=== PATIENT | male | born 1980 | race Caucasian/White ===

== ENCOUNTER 2019-09-25 16:27 | Outpatient (CLI) | payer OTHER, SELFPAY ==
--- NOTE | ~2019-09-25 | XR_ITS ---
EXAMINATION: XR abdomen/kub 1V DATE: 09/25/2019 16:54 INDICATION: Gross hematuria. TECHNIQUE: A supine view of the abdomen on 2 radiographs was obtained. COMPARISON: CT abdomen and pelvis 09/25/2019 FINDINGS: There are no dilated loops of bowel. There is no urolithiasis. There is a phlebolith in lef t pelvis. IMPRESSION: 1. No urolithiasis. Reviewed, dictated and finalized at location A. 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 No urolithiasis.
--- NOTE | ~2019-09-25 | CT_ITS ---
EXAMINATION: CT abdomen pelvis wo/w con DATE: 09/25/2019 17:27 INDICATION: Gross hematuria TECHNIQUE: Computed tomography (CT) of the abdomen and pelvis was performed without intravenous contr ast. CT of the abdomen and pelvis was then performed with a total of 130 mL Omnipaque 350 intravenous contrast using a double-bolus technique for simultaneous opacification of the renal parenchyma and r enal collecting system. The dose-length product (DLP) was 2326.03 mGy-cm. Automated exposure control and iterative reconstruction technique were employed. COMPARISON: None FINDINGS: Minimal dependent atelectasis is present in the lung bases. The heart size is normal. There is scarring in the lingula. Calcified right hilar lung nodules are consistent with old granulomatous disease. The liver, spleen, pancreas, and adrenal glands are normal. The gallbladder is decompressed but normal in appearance. No stones are identified in the kidneys, ureters, or bladder. There is no hydronephrosis or hydroureter. No suspicious renal or urothelial lesion is identified. No pathologica lly enlarged abdominal or pelvic lymph nodes are identified. There is no free intraperitoneal gas or evidence of bowel obstruction. The appendix is normal. IMPRESSION: 1. No CT correlate for the patient's symptoms. Reviewed, dictated and finalized at location A. 3D ARTIST
[2019-09-25 22:40] LABS: Blood Urea Nitrogen 14 mg/dL (8-26); Estimated Glomerular Filt Rate > 60
== END 2019-09-25 16:28 | disposition home or self-care (01) ==
LOC: ANHIMG 16:38
PROVIDERS: Visit Provider Urology
DX: R31.0 Gross hematuria (principal)
CPT/HCPCS: 74018; 74178; Q9967

== ENCOUNTER 2020-01-26 00:20 | Outpatient (CLI) | payer OTHER, SELFPAY ==
[2020-01-26 20:58] LABS: SARS-CoV-2 RNA PCR Negative
== END 2020-01-26 00:21 | disposition home or self-care (01) ==
LOC: ANHCOVIDDT 00:20
PROVIDERS: Visit Provider Otolaryngology
DX: Z01.812 Encounter for preprocedural laboratory examination (principal); Z11.59 Encounter for screening for other viral diseases
CPT/HCPCS: 87635; C9803; U0003

== ENCOUNTER 2020-01-29 00:54 | Day surgery (SDC) | payer OTHER, SELFPAY ==
[2020-01-16 10:10] VITALS: BMI 30.4
[2020-01-29] VITALS (8 sets, daily range): BP systolic 123–135; BP diastolic 78–95; PULSE 62–107; RESP 12–18; TEMP 36.1–36.7; O2SAT 97–100
--- NOTE | 2020-01-29 12:18 | WPDHPUPDATE1 ---
History and Physical Update Update Date/Time: 01/29/20 12:18 History and Physical has been reviewed, including an updated exam of the patient. There are NO changes in the patient's condition. Risks, benefits, and alternatives have been discussed and questions answered. Patient agrees to proceed with procedure.
--- NOTE | 2020-01-29 12:41 | PM.IMHP ---
H&P: HPI History of Present Illness Chief complaint: Deviated Septum, Turbinate Hypertrophy Narrative: Regan Soto is a 39 year old male with dev septum Review of Systems Review of Systems: All systems reviewed & are unremarkable except as noted in HPI and below PMFSH Social History Social History Gender identity (if verbalized by the patient): Male Meds Home Medications and Allergies Home Medications Medication Instructions Recorded Confirmed Type Lacto.acidophilus-Bif.animalis 1 cap PO DAILY 01/16/20 01/16/20 History [Probiotic] cetirizine [Zyrtec] 10 mg PO DAILY 01/16/20 01/16/20 History Allergies Allergy/AdvReac Type Severity Reaction Status Date / Time amoxicillin Allergy Mild Rash Verified 01/16/20 10:07 Exam Narrative: Exam Narrative: deviated septum Assessment and Plan Assessment and plan (1) Deviated septum: Code(s): J34.2 - Deviated nasal septum Status: Acute Assessment and Plan: septoturb. refer to outpt h&p for full detials.
--- NOTE | 2020-01-29 12:56 | P.PNAN_ITS ---
Anes - Initial Pre Proc Eval Procedure: Operation Date: 01/29/20 15:00 Proposed Procedures p Septoplasty - Vishal Lopez MD s Bilateral Turbinate Reduction - Vishal Lopez MD Date/Time: 01/29/20 12:56 Surgeon: Vishal Lopez MD Pre Op Diagnosis: Deviated Septum, Turbinate Hypertrophy Patient Data Age: 39 Gender: M Height: 6 ft Weight: 102 kg Allergies Allergy/AdvReac Type Severity Reaction Status Date / Time amoxicillin Allergy Mild Rash Verified 01/16/20 10:07 Home Medications Medication Instructions Recorded Confirmed Type Lacto.acidophilus-Bif.animalis 1 cap PO DAILY 01/16/20 01/16/20 History [Probiotic] cetirizine [Zyrtec] 10 mg PO DAILY 01/16/20 01/16/20 History Patient hx anesthesia problems: none Family hx anesthesia problems: none [facility] Social History Social History Gender identity (if verbalized by the patient): Male Anes - Eval Final PreProcedure Day of Procedure 01/29/20 12:56 Patient weight: overweight Heart: regular rate and rhythm Lungs: clear to auscultation Airway: Mallampati scale class II Neurological: alert and oriented Last oral intake: >/= 8 hours ASA classification: II Emergent: no Anesthetic plan: proceed Anesthesia type and monitoring: general ETT and standard monitoring Informed Consent: The patient's anesthetic plan and its attendant risks and benefits were discussed with the patient/family/POA. Questions were solicited and answers provided to the satisfaction of the patient/family/POA.
[2020-01-29] MEDS: LACTATED RINGERS 1,000 ML 30 ML IV CONT ×2 (13:00→14:23)
[2020-01-29] MEDS: OXYMETAZOLINE HCL 0.05% NAS 15 ML BTL (*BKC) 1 SPRAY NASAL (13:28)
[2020-01-29] MEDS: LIDO 1%/EPINEPHRINE 1:100,000 20 ML VIAL 5 ML INFILTRATE (13:28)
--- NOTE | 2020-01-29 14:18 | P.OP_ITS ---
Procedure Note - Detailed Date of procedure: 01/29/20 Pre-op diagnosis: Deviated Septum, Turbinate Hypertrophy Post-op diagnosis: same Procedure performed: Septoplasty and bilateral inferior turbinoplasty Description of procedure: DESCRIPTION OF PROCEDURE: ? After obtaining informed consent and proper site verification the patient was brought to the operating room and placed on the operating table in the supine position. They were placed under general endotracheal anesthesia by the anesthesia provider. The patient was then draped in standard fashion for septoplasty and turbinoplasty. A timeout was performed and the correct patient and procedure were verified. The nasal cavity was injected with 1% lidocaine with 1-100,000 epinephrine and packed with afrin-soaked cottonoid pledgets. ? Attention was then directed to the nasal septum. A hemitransfixion incision was made in the left caudal septum and a mucoperichondrial flap was elevated in the usual fashion. The flap was elevated under endoscopic visualization and the remainder of the case was performed with endoscopic assistance. Using a D- knife, an incision was made through the cartilaginous septum with care to preserve the appropriate caudal and dorsal ?L-strut? of cartilage. The cartilage was then disarticulated from the bony-cartilaginous junction and the deviated cartilage was removed. Further deviated bone and cartilage was removed from the maxillary crest and posterior bony septum with care to avoid injury to the mucoperichondrial flap using a combination of dissection and Vamsi- Franchesca forceps. Once this was completed, the hemitransfixion incision was closed using simple interrupted 4-0 chromic suture. A quilting stitch to reapproximate the mucoperichondrial flaps was then placed using 4-0 plain gut suture on a Shakeel needle. ? Next attention was directed to the turbinates. Using a 0? telescope and 2mm turbinate blade microdebrider, a stab incision was made in the anterior face of the turbinate and dissection was carried posterior to perform submucosal resection. Next the turbinate was outfractured using a blunt instrument. A similar procedure was then performed on the right-hand side without difficulty. De La Torre splints covered in mupirocin ointment were placed in the nasal cavity and secured to the membranous septum using a 3-0 Prolene suture. ?An manuel-gastric tube was used to decompress the stomach and care of the patient was handed over to anesthesia. The patient was awakened from general anesthesia extubated in the operating room, and transported to the recovery room in stable condition without complication. Anesthesia: JUANAA Surgeon: Vishal Lopez MD Estimated blood loss (mL): 20 Drains: No Packing: Yes (bilateral de la torre splints) Pathology: none sent Complications: No immediate complications Condition: stable Disposition: same day Findings: Left septal deviation, turbinate hypertrophy
== END 2020-01-29 16:20 | disposition home or self-care (01) ==
PROVIDERS: Visit Provider Otolaryngology
PROC: (CPT 30520; principal; 2020-01-29 15:00)
PROC: (CPT 30520; 2020-01-29 15:00)
DX: J34.2 Deviated nasal septum (principal); J34.3 Hypertrophy of nasal turbinates
CPT/HCPCS: 30520; 30140; A9270; J0330; J1100; J2250; J2405; J2704; J3010; J7120

== ENCOUNTER 2021-04-20 13:37 | Emergency (ER) | payer OTHER, SELFPAY ==
--- NOTE | ~2021-04-20 | XR_ITS ---
XR shoulder RT min 2V DATE: 04/20/2021 16:21 INDICATION: Right generalized shoulder pain radiating down arm, with tingling TECHNIQUE: 5 views COMPARISON: None FINDINGS: No fracture or dislocation, periosteal reaction or bone destruction or abnormal soft tissue calcification. IMPRESSION: Negative right shoulder Reviewed, dictated and finalized at location A. IMPRESSION: Negative right shoulder
[2021-04-20 14:05] VITALS: BP 136/79; PULSE 84; RESP 18; TEMP 36.8; O2SAT 99
[2021-04-20 15:49] VITALS: BP 131/95; PULSE 80; TEMP 37.2; O2SAT 95
[2021-04-20 17:47] VITALS: BP 152/107; PULSE 71; TEMP 36.8; O2SAT 98
[2021-04-20 18:05] VITALS: BP 150/96; PULSE 82; RESP 16; O2SAT 98
--- NOTE | 2021-04-20 18:30 | ED.GENADULT ---
HPI - General Adult General Chief complaint: Extremity Problem,Nontraumatic Stated complaint: right shoulder pain Time Seen by Provider: 04/20/21 15:09 Source: patient Mode of arrival: ambulatory Limitations: no limitations History of Present Illness HPI narrative: Patient with history of longstanding shoulder pain presents to the emergency department with chief complaint of increased right shoulder pain over the past 2 weeks. Patient states that he is also noticed some tingling to his first digit intermittently. Patient states he feels as if he is struck his funny bone. He denies any direct recent injury. He denies any loss of range of motion. He reports he has been taking ibuprofen for his discomfort. He has not seen his primary care regarding his issue. Related Data Allergies Allergy/AdvReac Type Severity Reaction Status Date / Time amoxicillin Allergy Mild Rash Verified 04/20/21 15:04 Review of Systems Review of Systems: CONSTITUTIONAL: Denies fever, chills, or sweats. EYES: Denies visual changes, redness, or discharge. ENT: Denies rhinorrhea, congestion, sore throat, or otalgia. CARDIOVASCULAR: Denies chest pain, palpitations, or edema. RESPIRATORY: Denies cough or dyspnea. GASTROINTESTINAL: Denies abdominal pain, nausea, vomiting, or diarrhea. GENITOURINARY: Denies dysuria or hematuria. SKIN: Denies rash or itching. MUSCULOSKELETAL: Reports right shoulder pain denies back pain, or myalgia. NEUROLOGIC: Denies headache, numbness, dizziness, or weakness. PSYCHIATRIC: Denies anxiety or depression. [facility] Social History Social History Gender identity (if verbalized by the patient): Male Exam Narrative: GENERAL: Well-appearing, well-nourished, and in no acute distress. HEAD: Normocephalic, atraumatic. EYES: PERRLA and EOMI. NECK: Supple. Range of motion intact CHEST: Clear to auscultation. No respiratory distress. No wheezes rales or rhonchi HEART: Regular rate and rhythm. No murmur heard. Normal peripheral pulses. EXTREMITIES: Normal range of motion. No edema. No erythema. Pain not be elicited with palpation. Pain with abduction internal and external rotation. Pest Control Applicator strength intact and sensation intact to digits distally. SKIN: Warm, dry, no rash. NEURO: No focal deficits. Alert and oriented x3. PSYCH: Normal mood and affect. Course Vital Signs Vital signs: Vital Signs Temperature 98.3 F 04/20/21 14:05 Pulse Rate 84 04/20/21 14:05 Respiratory Rate 18 04/20/21 14:05 Blood Pressure 136/79 04/20/21 14:05 Pulse Oximetry 99 04/20/21 14:05 Temperature 98.3 F 04/20/21 17:47 Pulse Rate 71 04/20/21 17:47 Respiratory Rate 18 04/20/21 14:05 Blood Pressure 152/107 H 04/20/21 17:47 Pulse Oximetry 98 04/20/21 17:47 Medical Decision Making MDM Narrative Medical decision making narrative: Discussed with the patient the need to follow-up with primary care integrated specialist for further investigation of the symptoms. Patient may be have a tendon or ligamentous injury and/or arthritic changes causing his symptoms. Discussed the patient may need physical therapy injection or MRI for further management or investigation into his symptoms. Differential Diagnosis Differential Diagnosis: Fracture, sprain, strain, arthritic changes Vital Signs Vital Signs: Vital Signs Temperature 98.3 F 04/20/21 14:05 Pulse Rate 84 04/20/21 14:05 Respiratory Rate 18 04/20/21 14:05 Blood Pressure 136/79 04/20/21 14:05 Pulse Oximetry 99 04/20/21 14:05 Temperature 98.3 F 04/20/21 17:47 Pulse Rate 71 04/20/21 17:47 Respiratory Rate 18 04/20/21 14:05 Blood Pressure 152/107 H 04/20/21 17:47 Pulse Oximetry 98 04/20/21 17:47 Imaging Data Radiologist's impression: ITS Impressions Shoulder X-Ray 04/20/21 16:31 IMPRESSION: Negative right shoulder Discharge Plan Discharge Clinical Impressio
== END 2021-04-20 18:05 | disposition home or self-care (01) ==
PROVIDERS: Emergency Provider Family Medicine
DX: M25.511 Pain in right shoulder (principal)
CPT/HCPCS: 73030; 99283

== ENCOUNTER 2021-05-22 07:29 | Outpatient (CLI) | payer OTHER, SELFPAY ==
--- NOTE | ~2021-05-22 | MR_ITS ---
EXAMINATION: MR shoulder RT wo con DATE: 05/22/2021 09:06 INDICATION: Right shoulder pain TECHNIQUE: Magnetic resonance imaging (MRI) of the right shoulder was performed without intravenous c ontrast. Sequences included axial PD-weighted FS FSE, coronal oblique PD-weighted FS FSE, coronal obl ique T2-weighted FS FSE, sagittal PD-weighted FS FSE, and sagittal T1-weighted SE. COMPARISON: None. FINDINGS: Coracoacromial arch: The acromion undersurface is minimally curved in morphology (type I-II). The coracoacromial ligament is normal. Acromioclavicular joint is normal. Rotator cuff: The supraspinatus, infraspinatus and teres minor tendons are normal. The subscapularis tendon is norm al. Normal rotator cuff muscle bulk and signal. Biceps tendon, glenoid labrum and glenohumeral cartilage: Long head of the biceps tendon is normal. Glenoid labrum is normal. Glenohumeral cartilage is normal. Fluid: Physiologic amount of fluid in the glenohumeral joint and biceps tendon sheath. No loose osteochondra l bodies. No abnormal fluid signal in the subacromial/subdeltoid bursa to suggest bursitis. Bones: Normal marrow signal with no edema, fracture or abnormal marrow replacing process. Mild cystic change at the greater tuberosity. IMPRESSION: 1. Normal right shoulder MRI. Reviewed, dictated and finalized at location A.
== END 2021-05-22 07:30 | disposition home or self-care (01) ==
LOC: ANHIMG 07:30
PROVIDERS: Visit Provider Nurse Practitioner Adult Health
DX: M25.511 Pain in right shoulder (principal)
CPT/HCPCS: 73221

== ENCOUNTER 2023-06-25 09:13 | Emergency (ER) | payer BC, SELFPAY ==
[2023-06-25 09:46] VITALS: BP 134/83; PULSE 83; RESP 16; TEMP 36.7; O2SAT 100
--- NOTE | 2023-06-25 09:48 | ED.URI ---
HPI - URI/Sore Throat General Chief Complaint: Upper Respiratory Infection Stated Complaint: Sinus Problems Time Seen by Provider: 06/25/23 09:48 Source: patient, RN notes reviewed and old records reviewed Mode of arrival: ambulatory Limitations: no limitations History of Present Illness HPI Narrative: 43-year-old male presents to the [facility] with sinus congestion, rhinorrhea, cough that started Wednesday, 3 days. Has taken Mucinex, Tiara-Gypsy and his daily allergy medication. Denies any fevers, chest pain abdominal pain. States children have been sick for the last 2-3 weeks as well Treatments prior to arrival: cold medicine Related Data Home Medications Medication Instructions Recorded Confirmed No Home Medications 06/25/23 06/25/23 Allergies Allergy/AdvReac Type Severity Reaction Status Date / Time No Known Allergies Allergy Verified 06/25/23 09:44 Review of Systems Review of Systems: All systems reviewed & are unremarkable except as noted in HPI and below Constitutional: Constitutional: Reports no additional constitutional complaints Eyes: Eyes: Reports no additional eye complaints ENT: Reports as per HPI Cardiovascular: Cardiovascular: Reports no additional cardiovascular complaints, Denies chest pain and Denies dyspnea Respiratory: Respiratory: Reports as per HPI, Denies chest congestion, Reports cough and Denies dyspnea Gastrointestinal: Gastrointestinal: Reports no additional gastrointestinal complaints, Denies abdominal pain, Denies nausea and Denies vomiting Musculoskeletal: Musculoskeletal: Reports no additional musculoskeletal complaints Integumentary/Breasts: Skin/Breast: Reports system reviewed and no additional complaints, except as docu Neurologic: Reports system reviewed and no additional complaints, except as documented Psychiatric: Psychiatric: Reports no additional psychiatric complaints Allergic/Immunologic: Allergic/Immunologic: Reports no additional allergic/immunologic complaints [facility] Past Medical History Medical History (Updated 06/25/23 @ 10:23 by Aneta Ernst APRN) Seasonal allergies Social History Social History Gender identity (if verbalized by the patient): Male Comments At the time of my signature, I reviewed and agree with the nursing past medical, surgical, social, and family history. There is no relevant family history pertinent to the patient complaint. Exam Const: General: cooperative, healthy appearing, comfortable, no acute distress, well developed, alert and well nourished Nutritional Appearance: well nourished Orientation/consciousness: patient oriented x3 Limitations: no limitations HENMT: Head: normal to inspection Ears: hearing grossly normal bilaterally, external ears normal, EAC's normal, mastoids normal, no periauricular adenopathy and TM abnormal with fluid behind the TM bilateral (Clear); not erythematous Face/Nose/Sinus: Normal external nose present, Normal nares present, Normal nasal mucous membranes and turbinates present, normal facial exam and face symmetric Face and sinus: normal facial exam and face symmetric Mouth: Yes Normal oral and palatal mucosa present, Yes lip normal and Yes moist mucous membranes Throat: posterior oropharynx normal, tonsils normal, uvula midline and postnasal drainage Eyes: General: appearance normal, both eyes and all related structures Alignment and Position: alignment normal Periorbital: periorbital findings normal Pupils: Equal, round and reactive pupils present EOM: EOMs intact bilaterally Neck: Neck: normal visual inspection, full ROM, no lymphadenopathy and no meningeal signs Chest: Chest palpation & inspection: normal inspection of the chest Resp: Effort & Inspection: normal respiratory effort and able to speak in complete sentences Auscultation: clear to auscultation bilaterally, no crackles, no rales, no rhonchi and no wheezes Cardio:
== END 2023-06-25 10:38 | disposition home or self-care (01) ==
PROVIDERS: Emergency Provider Nurse Practitioner; PCP Family Medicine
DX: J06.9 Acute upper respiratory infection, unspecified (principal)
CPT/HCPCS: 99211; G0463

== ENCOUNTER 2024-09-11 10:20 | Emergency (ER) | payer OTHER, SELFPAY ==
--- NOTE | ~2024-09-11 | XR_ITS ---
EXAMINATION: XR chest 2V DATE: 09/11/2024 11:05 INDICATION: Chest pain TECHNIQUE: PA and lateral views of the chest were obtained. COMPARISON: None FINDINGS: The lungs are clear with no focal airspace opacities, pulmonary edema, pleural effusion or pneumothor ax. The cardiomediastinal silhouette is normal. Visualized bones and soft tissues are unremarkable. IMPRESSION: 1. No acute cardiopulmonary disease. Reviewed, dictated and finalized at location A. K SERVICE WORKER
--- NOTE | 2024-09-11 10:23 | ECG_ITS ---
Test Date: 2024-09-11 10:37:32 Measurements Intervals [place] Rate: 77 P: 56 RI: 138 QRS: 50 QRSD: 88 T: 64 QT: 351 QTc: 398 Interpretive Statements SINUS RHYTHM BASELINE ARTIFACT- I, II, III, AVR NORMAL ECG No previous ECG available for comparison Electronically Signed On 09-11-2024 10:47:22 SHOW OPERATIONS SUPERVISOR by Wale Martínez D.O.
[2024-09-11 10:43] VITALS: BP 127/82; PULSE 76; RESP 14; TEMP 36.8; O2SAT 97
[2024-09-11 10:56] LABS: Basophils Percent Auto 0.4 % (0.2-1.2); Eosinophils Percent Auto 0.5 % (0-4.4); Hematocrit 46.1 % (42.0-52.0); Immature Granulocyte Absolute 0.02 K/mm3 (0.00-0.031); Immature Granulocyte Percent A 0.3 % (0-0.5); Lymphocytes Absolute Auto 1.48 K/mm3 (0.9-3.2); Lymphocytes Percent Auto 19.8 % (18.3-44.2); Mean Corpuscular HGB Conc 34.7 g/dl (32-36); Mean Corpuscular Hemoglobin 29.4 pg (26-34); Mean Corpuscular Volume 84.7 fl (80-100); Mean Platelet Volume 8.6 fl (7.4-10.4); Monocytes Absolute Auto 0.4 K/mm3 (0.1-0.6); Monocytes Percent Auto 5.3 % (2.6-8.5); Neutrophils Absolute Auto 5.5 K/mm3 (1.3-6.7); Neutrophils Percent Auto 73.7 % (45.5-73.1); Platelet Count Result 401 k/mm3 (150-375); Red Blood Count 5.44 M/mm3 (4.6-6.20); Red Cell Distribution Width 12.6 % (11.5-14.5); White Blood Count 7.5 K/mm3 (4.5-10.0)
--- OUTSIDE RECORDS SUMMARY | 2024-09-11 11:10 | XMS_ITS | Clinical Summary ---
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 Pulse 80 08/08/2013 1:10 PM COMMERCIAL LEASING MANAGER Temperature - - Respiratory Rate - - Oxygen Saturation - - Inhaled Oxygen Concentration - - Weight 86.2 kg (190 lb) 08/08/2013 1:10 PM COMMERCIAL LEASING MANAGER Height 177.8 cm (5' 10 ) 08/08/2013 1:10 PM COMMERCIAL LEASING MANAGER Body Mass Index 27.26 08/08/2013 1:10 PM COMMERCIAL LEASING MANAGER Plan of Treatment Health Maintenance Due Date Last Done Comments Annual Physical 1985 Hepatitis C 2000 DTaP, Tdap and Td Vaccines ( 1 - Tdap) 2001 Hepatitis B Vaccines (1 of 3 - 19+ 3-dose series) 2001 COVID-19 Vaccine (2023-2 5 season) 2024 Influenza Adult (#1) 2024 05/31/2012 HPV Vaccines Aged Out No longer eligi ble based on patient's age to complete this topic Meningococcal B Vaccine Aged Out No l onger eligible based on patient's age to complete this topic Meningococcal Vaccine Aged Out No paula margie eligible based on patient's age to complete this topic Pneumococcal Vaccine: Pediat rics (0 to 5 Years) and At-Risk Patients (6 to 64 Years) Aged Out No longer eligi ble based on patient's age to complete this topic RSV Immunizations Under 20 Months Aged Out No longer eligible based on patient's age to complete this topic
[2024-09-11 11:15] LABS: Alanine Aminotransferase 52 U/L (6-50); Albumin Level 4.9 g/dL (3.5-5.1); Alkaline Phosphatase 74 U/L (38-126); Anion Gap 12 mmol/L (4-12); Aspartate Amino Transferase 34 U/L (17-59); Bilirubin,Total 3.6 mg/dL (0.2-1.3); Blood Urea Nitrogen 12 mg/dL (9-20); Calcium 9.6 mg/dL (8.4-10.2); Carbon Dioxide 23 mmol/L (22-30); Chloride 103 mmol/L (98-107); Estimated CRCL calculation 123 ml/min; Estimated Glomerular Filt Rate > 60; Glucose 112 mg/dL (65-110); Sodium 138 mmol/L (137-145)
[2024-09-11 11:20] LABS: Troponin I < 0.012 ng/mL (0.000-0.034)
[2024-09-11 11:30] LABS: Lipase 39 U/L (23-300)
--- NOTE | 2024-09-11 12:36 | ED.CHESTPAIN ---
HPI - Chest Pain General Chief Complaint: Chest Pain <Sandra Mark PA-C - Last Filed: 09/13/24 17:44> Stated Complaint: chest pain x2 days <Sandra Mark PA-C - Last Filed: 09/13/24 17:44> Time Seen by Provider: 09/11/24 12:36 <Sandra Mark PA-C - Last Filed: 09/13/24 17:44> Focused HPI: This is a 44 year old male that presents to the ER for chest pain. Ongoing since yesterday. Reports he was seen at the ER yesterday for this. He had negative cardiac enzymes at that time. Reports he woke up with chest pain again this morning. Reports associated shortness of breath today which prompted him to be seen. Reports he does not feel right. Reports his skin feels old. Denies fever, cough, lower extremity edema. GENERAL: Well-appearing, well-nourished, and in no acute distress. HEAD: Normocephalic, atraumatic. CHEST: Clear to auscultation. ?No respiratory distress. HEART: Regular rate and rhythm.? NEURO: ?Alert and oriented x3. Patient screened in triage and initial orders placed.? ?Additional care and disposition to be based upon?diagnostic testing and treatment. <Sandra Mark PA-C - Last Filed: 09/13/24 17:44> History of Present Illness HPI narrative: Agree with the HPI above, would like to add the patient to excel also has a long trip from here to [place] and back driving. No history of DVT or leg swelling, calf cramping. No blood thinner use. Called his PCP to get established a cardiology referral today but they referred to the ER for evaluation of his persistent chest pain. <Dylon Conley MD - Last Filed: 09/11/24 18:26> Related Data Home Medications: Home Medications ?Medication ?Instructions ?Recorded ?Confirmed ?Last Taken ?Type No Home Medications 06/25/23 06/25/23 Unknown History <Sandra Mark PA-C - Last Filed: 09/13/24 17:44> Allergies/Adverse Reactions: Allergies Allergy/AdvReac Type Severity Reaction Status Date / Time No Known Allergies Allergy Verified 09/11/24 15:36 <Sandra Mark PA-C - Last Filed: 09/13/24 17:44> Review of Systems Review of Systems: As reviewed above in HPI <Dylon Conley MD - Last Filed: 09/11/24 18:26> PMFSH Past Medical History Medical History: Medical History Seasonal allergies <Sandra Mark PA-C - Last Filed: 09/13/24 17:44> Social History Social History: Social History Gender identity (if verbalized by the patient): Male <Sandra Mark PA-C - Last Filed: 09/13/24 17:44> Exam Narrative: GENERAL: [Well-appearing, well-nourished, and in no acute distress.] HEAD: [Normocephalic, atraumatic.] EYES: [PERRLA and EOMI.] ENT: Nares clear, no rhinorrhea or epistaxis. Mucous membranes moist. NECK: Supple. CHEST: [Clear to auscultation. No respiratory distress.] HEART: [Regular rate and rhythm]. No murmur heard. [Normal peripheral pulses.] ABDOMEN: [Soft, nondistended], [nontender], [No rigidity or guarding] EXTREMITIES: Normal range of motion. [No edema.] SKIN: Warm, dry, no rash. NEURO: [No focal deficits]. Alert and oriented [x3.] PSYCH: [Normal mood and affect.] <Dylon Conley MD - Last Filed: 09/11/24 18:26> Course Vital Signs Vital signs: Vital Signs Temperature 98.2 F 09/11/24 10:43 Pulse Rate 76 09/11/24 10:43 Respiratory Rate 14 09/11/24 10:43 Blood Pressure 127/82 09/11/24 10:43 Pulse Oximetry 97 09/11/24 10:43 Oxygen Delivery Room Air 09/11/24 10:43 Temperature 98.2 F 09/11/24 10:43 Pulse Rate 87 09/11/24 18:35 Respiratory Rate 18 09/11/24 18:35 Blood Pressure 136/95 H 09/11/24 18:35 Pulse Oximetry 98 09/11/24 18:35 Oxygen Delivery Room Air 09/11/24 15:33 <Sandra Mark PA-C - Last Filed: 09/13/24 17:44> Vital Signs Temperature 98.2 F 09/11/24 10:43 Pulse Rate 76 09/11/24 10:43 Respiratory Rate 14 09/11/24 10:43 Blood Pressure 127/82 09/11/24 10:43 Pulse Oximetry 97 09/11/24 10:43 Oxygen Delivery Room Air 09/11/24 10:43 Temperature 98.2 F 09/11/24 10:43 Pulse Rate 87 09/11/24 18:35 Respiratory Rate 18 09/11/24 18:35 Blood Pressure 136/95 H 09/11/24 18:35 Pulse Oximetry 98 09/11/24 18:35 Oxygen Delivery Room Air 09/11/24 15:33 <Dylon Conley MD - Last Filed: 09/11/24 18:26> MDM - Chest Pain MDM Narrative Medical decision making narrative: 44-year-old otherwise healthy appearing male presenting to the emergency room with left-sided chest pain shortness a breath with exertion. He states he was seen at a hospital in [place] yesterday in the emergency department, had negative cardiac workup at that time was referred back to his PCP. He called his PCP and was referred back to the ER for chest pain workup. Patient was supposed to get established with a letterset press set up operator but did not happen. Denies any history of cardiac disease or cardiac events to his knowledge. Was otherwise in his normal state of health but has had intermittent chest discomfort for last 6 weeks. Notices left-sided chest discomfort that radiates into his neck. Describes as a heaviness sensation rather than pain. No history of DVT or PE but did get through a long trip 2 weeks prior. No recent procedures. He is hemodynamically stable with normal blood pressure, no tachycardia, fever, hypoxia. He has a reassuring examination was symmetric strong pulses, clear breath sounds throughout, no reproducible pain in the abdomen or chest wall. Overall well-appearing. Differential includes angina, ACS, pneumonia, viral syndrome, costochondritis, less likely pneumothorax or PE. Low suspicion aortic process. Cardiac workup was ordered here including troponin, EKG, chest x-ray, CBC, CMP, D-dimer. He was given Pepcid and Maalox to see if that relieves the symptoms. Workup shows no leukocytosis or anemia. Normal platelet count. Coags within normal limits, negative D-dimer. Electrolytes within normal limits, normal renal function panel, normal glucose, normal hepatic function panel. Elevated bilirubin but no baseline. Not congruent with patient's symptom location within left-sided upper chest. Negative troponin x2, negative lipase. Chest x-ray negative. Serial EKGs were obtained and nonischemic. Patient is safe and stable for discharge home at this time with cardiology follow-up instructions. Patient was given return precautions and safe for discharge at this time. <Dylon Conley MD - Last Filed: 09/11/24 18:26> Medical Records Data Attestation: I reviewed the patient's medical records. <Dylon Conley MD - Last Filed: 09/11/24 18:26> Lab Data Attestation: I reviewed the patient's lab results. <Dylon Conley MD - Last Filed: 09/11/24 18:26> Result diagrams: 09/11/24 10:48 09/11/24 10:48 <Sandra Mark PA-C - Last Filed: 09/13/24 17:44> Labs: Lab Results 09/11/24 09/11/24 09/11/24 Range/Units 10:48 12:39 14:30 WBC 7.5 (4.5-10.0) K/mm3 RBC 5.44 (4.6-6.20) M/mm3 Hgb 16.0 (14.0-18.0) g/dL Hct 46.1 (42.0-52.0) % MCV 84.7 (80-100) fl MCH 29.4 (26-34) pg MCHC 34.7 (32-36) g/dl RDW 12.6 (11.5-14.5) % Plt Count 401 H (150-375) k/mm3 MPV 8.6 (7.4-10.4) fl Immature Gran % (Auto) 0.3 (0-0.5) % Neut % (Auto) 73.7 H (45.5-73.1) % Lymph % (Auto) 19.8 (18.3-44.2) % Coos % (Auto) 5.3 (2.6-8.5) % Eos % (Auto) 0.5 (0-4.4) % Baso % (Auto) 0.4 (0.2-1.2) % Lymph # (Auto) 1.48 (0.9-3.2) K/mm3 Coos # (Auto) 0.4 (0.1-0.6) K/mm3 Eos # (Auto) 0.0 (0-0.3) K/mm3 Baso # (Auto) 0.0 (0.0-0.1) K/mm3 Abs Immat Gran (auto) 0.02 (0.00-0.031) K/mm3 Absolute Neuts (auto) 5.5 (1.3-6.7) K/mm3 Absolute Nucleated RBC 0.000 (0.0-0.012) K/mm3 Nucleated RBC % 0.0 (0.0-0.2) % PT (11.1-14.7) Seconds INR APTT (22.3-36.8) Seconds D-Dimer Cancelled Sodium 138 (137-145) mmol/L Potassium 4.0 (3.4-5.0) mmol/L Chloride 103 (98-107) mmol/L Carbon Dioxide 23 (22-30) mmol/L Anion Gap 12 (4-12) mmol/L BUN 12 (9-20) mg/dL Creatinine 0.82 (0.7-1.3) mg/dL Estim Creat Clear Calc 123 ml/min Estimated GFR > 60 (59 - ) Glucose 112 H (65-110) mg/dL Calcium 9.6 (8.4-10.2) mg/dL Total Bilirubin 3.6 H (0.2-1.3) mg/dL AST 34 (17-59) U/L ALT 52 H (6-50) U/L Alkaline Phosphatase 74 (38-126) U/L Troponin I < 0.012 < 0.012 (0.000-0.034) ng/mL Total Protein 8.0 (6.3-8.2) g/dL Albumin 4.9 (3.5-5.1) g/dL Lipase 39 (23-300) U/L 09/11/24 Range/Units 16:34 WBC (4.5-10.0) K/mm3 RBC (4.6-6.20) M/mm3 Hgb (14.0-18.0) g/dL Hct (42.0-52.0) % MCV (80-100) fl MCH (26-34) pg MCHC (32-36) g/dl RDW (11.5-14.5) % Plt Count (150-375) k/mm3 MPV (7.4-10.4) fl Immature Gran % (Auto) (0-0.5) % Neut % (Auto) (45.5-73.1) % Lymph % (Auto) (18.3-44.2) % Coos % (Auto) (2.6-8.5) % Eos % (Auto) (0-4.4) % Baso % (Auto) (0.2-1.2) % Lymph # (Auto) (0.9-3.2) K/mm3 Coos # (Auto) (0.1-0.6) K/mm3 Eos # (Auto) (0-0.3) K/mm3 Baso # (Auto) (0.0-0.1) K/mm3 Abs Immat Gran (auto) (0.00-0.031) K/mm3 Absolute Neuts (auto) (1.3-6.7) K/mm3 Absolute Nucleated RBC (0.0-0.012) K/mm3 Nucleated RBC % (0.0-0.2) % PT 13.1 (11.1-14.7) Seconds INR 1.0 APTT 29.3 (22.3-36.8) Seconds D-Dimer < 0.27 Sodium (137-145) mmol/L Potassium (3.4-5.0) mmol/L Chloride (98-107) mmol/L Carbon Dioxide (22-30) mmol/L Anion Gap (4-12) mmol/L BUN (9-20) mg/dL Creatinine (0.7-1.3) mg/dL Estim Creat Clear Calc ml/min Estimated GFR (59 - ) Glucose (65-110) mg/dL Calcium (8.4-10.2) mg/dL Total Bilirubin (0.2-1.3) mg/dL AST (17-59) U/L ALT (6-50) U/L Alkaline Phosphatase (38-126) U/L Troponin I (0.000-0.034) ng/mL Total Protein (6.3-8.2) g/dL Albumin (3.5-5.1) g/dL Lipase (23-300) U/L <Sandra Mark PA-C - Last Filed: 09/13/24 17:44> Lab Results 09/11/24 09/11/24 09/11/24 Range/Units 10:48 12:39 14:30 WBC 7.5 (4.5-10.0) K/mm3 RBC 5.44 (4.6-6.20) M/mm3 Hgb 16.0 (14.0-18.0) g/dL Hct 46.1 (42.0-52.0) % MCV 84.7 (80-100) fl MCH 29.4 (26-34) pg MCHC 34.7 (32-36) g/dl RDW 12.6 (11.5-14.5) % Plt Count 401 H (150-375) k/mm3 MPV 8.6 (7.4-10.4) fl Immature Gran % (Auto) 0.3 (0-0.5) % Neut % (Auto) 73.7 H (45.5-73.1) % Lymph % (Auto) 19.8 (18.3-44.2) % Coos % (Auto) 5.3 (2.6-8.5) % Eos % (Auto) 0.5 (0-4.4) % Baso % (Auto) 0.4 (0.2-1.2) % Lymph # (Auto) 1.48 (0.9-3.2) K/mm3 Coos # (Auto) 0.4 (0.1-0.6) K/mm3 Eos # (Auto) 0.0 (0-0.3) K/mm3 Baso # (Auto) 0.0 (0.0-0.1) K/mm3 Abs Immat Gran (auto) 0.02 (0.00-0.031) K/mm3 Absolute Neuts (auto) 5.5 (1.3-6.7) K/mm3 Absolute Nucleated RBC 0.000 (0.0-0.012) K/mm3 Nucleated RBC % 0.0 (0.0-0.2) % PT (11.1-14.7) Seconds INR APTT (22.3-36.8) Seconds D-Dimer Cancelled Sodium 138 (137-145) mmol/L Potassium 4.0 (3.4-5.0) mmol/L Chloride 103 (98-107) mmol/L Carbon Dioxide 23 (22-30) mmol/L Anion Gap 12 (4-12) mmol/L BUN 12 (9-20) mg/dL Creatinine 0.82 (0.7-1.3) mg/dL Estim Creat Clear Calc 123 ml/min Estimated GFR > 60 (59 - ) Glucose 112 H (65-110) mg/dL Calcium 9.6 (8.4-10.2) mg/dL Total Bilirubin 3.6 H (0.2-1.3) mg/dL AST 34 (17-59) U/L ALT 52 H (6-50) U/L Alkaline Phosphatase 74 (38-126) U/L Troponin I < 0.012 < 0.012 (0.000-0.034) ng/mL Total Protein 8.0 (6.3-8.2) g/dL Albumin 4.9 (3.5-5.1) g/dL Lipase 39 (23-300) U/L 09/11/24 Range/Units 16:34 WBC (4.5-10.0) K/mm3 RBC (4.6-6.20) M/mm3 Hgb (14.0-18.0) g/dL Hct (42.0-52.0) % MCV (80-100) fl MCH (26-34) pg MCHC (32-36) g/dl RDW (11.5-14.5) % Plt Count (150-375) k/mm3 MPV (7.4-10.4) fl Immature Gran % (Auto) (0-0.5) % Neut % (Auto) (45.5-73.1) % Lymph % (Auto) (18.3-44.2) % Coos % (Auto) (2.6-8.5) % Eos % (Auto) (0-4.4) % Baso % (Auto) (0.2-1.2) % Lymph # (Auto) (0.9-3.2) K/mm3 Coos # (Auto) (0.1-0.6) K/mm3 Eos # (Auto) (0-0.3) K/mm3 Baso # (Auto) (0.0-0.1) K/mm3 Abs Immat Gran (auto) (0.00-0.031) K/mm3 Absolute Neuts (auto) (1.3-6.7) K/mm3 Absolute Nucleated RBC (0.0-0.012) K/mm3 Nucleated RBC % (0.0-0.2) % PT 13.1 (11.1-14.7) Seconds INR 1.0 APTT 29.3 (22.3-36.8) Seconds D-Dimer < 0.27 Sodium (137-145) mmol/L Potassium (3.4-5.0) mmol/L Chloride (98-107) mmol/L Carbon Dioxide (22-30) mmol/L Anion Gap (4-12) mmol/L BUN (9-20) mg/dL Creatinine (0.7-1.3) mg/dL Estim Creat Clear Calc ml/min Estimated GFR (59 - ) Glucose (65-110) mg/dL Calcium (8.4-10.2) mg/dL Total Bilirubin (0.2-1.3) mg/dL AST (17-59) U/L ALT (6-50) U/L Alkaline Phosphatase (38-126) U/L Troponin I (0.000-0.034) ng/mL Total Protein (6.3-8.2) g/dL Albumin (3.5-5.1) g/dL Lipase (23-300) U/L <Dylon Conley MD - Last Filed: 09/11/24 18:26> Imaging Data Attestation: I personally reviewed and interpreted this imaging study as follows: <Dylon Conley MD - Last Filed: 09/11/24 18:26> My impression: Impressions Chest X-Ray 09/11/24 11:22 IMPRESSION: 1. No acute cardiopulmonary disease. <Dylon Conley MD - Last Filed: 09/11/24 18:26> ECG Data EKG #1: Attestation: I personally reviewed and interpreted this ECG as follows: <Dylon Conley MD - Last Filed: 09/11/24 18:26> ECG completion date: 09/11/24 <Dylon Conley MD - Last Filed: 09/11/24 18:26> ECG completion time: 16:13 <Dylon Conley MD - Last Filed: 09/11/24 18:26> Prior ECG tracings: available for review <Dylon Conley MD - Last Filed: 09/11/24 18:26> Interpretation: Normal sinus rhythm, no ST segment elevations, depressions or inversions. Overall regular rate, rhythm and axis. QTC 4 3, QRS 93, GA 139. No signs of acute ischemic changes compared to previous EKG. Normal sinus rhythm final interpretation. <Dylon Conley MD - Last Filed: 09/11/24 18:26> Critical Care Time Critical Care Time Critical Care Time: No <Sandra Mark PA-C - Last Filed: 09/13/24 17:44> Discharge Plan Discharge Clinical Impression: Chest pain Qualifiers: Chest pain type: unspecified Qualified Code(s): R07.9 - Chest pain, unspecified <Sandra Mark PA-C - Last Filed: 09/13/24 17:44> Patient Disposition: Home, Self-Care <Sandra Mark PA-C - Last Filed: 09/13/24 17:44> Condition: Stable <HOUSTON Zee Last Filed: 09/13/24 17:44> Instructions: Antibiotic Form, Chest Pain (ED) <Sandra Mark PA-C - Last Filed: 09/13/24 17:44> Additional Instructions: Your cardiac workup here is very reassuring, no signs of blood clot, normal EKG, normal electrolytes. We need to follow-up with the letterset press set up operator so please call the provided contact information and try to schedule outpatient appointment. Call your regular doctor as well for follow-up. Return with any new or worsening concerns at any time. <Sandra Mark PA-C - Last Filed: 09/13/24 17:44> Patient Language: Swedish <Sandra Mark PA-C - Last Filed: 09/13/24 17:44> Prescriptions: No Action No Home Medications <Sandra Mark PA-C - Last Filed: 09/13/24 17:44> Follow-up/Referrals: Abrahan Kramer MD [Physician] - 1 Week (Outpatient stress test and evaluation) Lesley Navas MD [Primary Care Provider] - Antoni Warren MD [Physician] - 1 Week (Outpatient stress test and evaluation) <Sandra Mark PA-C - Last Filed: 09/13/24 17:44> Time of Disposition: 18:25 <Sandra Mark PA-C - Last Filed: 09/13/24 17:44> 18:25 <Dylon Conley MD - Last Filed: 09/11/24 18:26>
--- NOTE | 2024-09-11 14:23 | ECG_ITS ---
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
[2024-09-11] MEDS: ASPIRIN 81 MG CHEWABLE TABLET 324 MG PO (14:27)
[2024-09-11 15:07] VITALS: BP 144/88; PULSE 74; RESP 16; O2SAT 93
[2024-09-11 15:07] LABS: Troponin I < 0.012 ng/mL (0.000-0.034)
[2024-09-11 15:33] VITALS: PULSE 69; O2SAT 98
--- OUTSIDE RECORDS SUMMARY | 2024-09-11 16:23 | XMS_ITS | Clinical Summary ---
Author Organization [facility] Address [address] [place] [id number] Care Team Providers Care Coil Repair Technician Name Role Phone Unavailable Primary Care Provider [...] Comments Blood Pressure 114/78 08/08/2013 1:10 PM PIANO TECHNICIAN Pulse 80 08/08/2013 1:10 PM PIANO TECHNICIAN Temperature - - Respiratory Rate - - Oxygen Saturation - - Inhaled Oxygen Concentration - - Weight 86.2 kg (190 lb) 08/08/2013 1:10 PM PIANO TECHNICIAN Height 177.8 cm (5' 10 ) 08/08/2013 1:10 PM PIANO TECHNICIAN Body Mass Index 27.26 08/08/2013 1:10 PM PIANO TECHNICIAN Plan of Treatment Health Maintenance Due Date [...]
[2024-09-11] MEDS: FAMOTIDINE 20 MG/2 ML VIAL IV PUSH (16:45)
[2024-09-11] MEDS: MAG HYDROX/AL HYDROX/SIMETH 30 ML UDC PO (16:45)
[2024-09-11 16:53] VITALS: BP 130/86; PULSE 83; RESP 17; O2SAT 98
[2024-09-11 16:54] LABS: Prothrombin Time 13.1 Seconds (11.1-14.7)
[2024-09-11 16:55] LABS: Partial Thromboplastin Time 29.3 Seconds (22.3-36.8)
[2024-09-11 17:02] LABS: D Dimer < 0.27 ug/mL (<0.48)
[2024-09-11 18:35] VITALS: BP 136/95; PULSE 87; RESP 18; O2SAT 98
== END 2024-09-11 18:37 | disposition home or self-care (01) ==
PROVIDERS: Emergency Medicine; Emergency Provider Student in an Organized Health Care Education/Training Program; PCP Family Medicine
DX: R07.9 Chest pain, unspecified (principal)
CPT/HCPCS: 36415; 71046; 80053; 83690; 84484; 85025; 85380; 85610; 85730; 93005; 96374; 99284; A9270